=== PATIENT | male | born 1970 | race Two or more races ===

== ENCOUNTER 2019-03-06 22:20 | Inpatient (IN) | payer SELFPAY ==
[~2019-03-06] VITALS: Ht 182.9 cm; Wt 101.1 kg
[2019-03-06 23:21] LABS: Basophils # (auto) 0.1 uL; Basophils % (auto) 1.1 % (0.0-2.0); Eosinophils # (auto) 0.2 uL; Eosinophils % (auto) 1.3 % (0.0-7.0); Hematocrit 51.9 % (41.0-53.0); Hemoglobin 17.5 g/dL (13.5-17.5); Lymphocytes # (auto) 2.1 uL; Mean Corpuscular Hemoglobin 31.2 pg (28.0-32.0); Mean Corpuscular Hgb Conc. 33.7 g/dL (32.0-36.0); Mean Corpuscular Volume 92.6 fL (80.0-100.0); Monocytes # (auto) 1.1 uL; Monocytes % (auto) 8.6 % (0.0-12.0); Neutrophils # (auto) 8.8 uL; Nucleated Red Blood Cells % 0.1 %; Platelet Count (auto) 201 10^3/uL (140-450); Red Cell Distribution Width 13.3 % (11.8-14.3); White Blood Cell 12.2 10^3/uL (4.4-10.8)
[2019-03-06 23:26] LABS: Urine Bacteria FEW /hpf (None Seen); Urine Blood Negative /uL (Negative); Urine Hyaline Cast FEW /lpf (0 - 2); Urine Mucus FEW (None Seen); Urine WBC 1 /hpf (0 - 3)
[2019-03-06 23:37] LABS: Albumin 3.9 g/dL (3.4-5.0); BUN/Creatinine Ratio 14.4; Calcium 8.9 mg/dL (8.5-10.1); Potassium 3.9 mmol/L (3.5-5.1)
[2019-03-06 23:40] LABS: Bilirubin, Total 1.1 mg/dL (0.2-1.0)
[2019-03-07] MEDS ORDERED: ONDANSETRON HCL 4 MG/2 ML VIAL IV ONE (02:00)
[2019-03-07] MEDS ORDERED: MORPHINE SULFATE 4 MG/ML SYR/VIAL IV ONE ×2 (02:00→03:45)
[2019-03-07] MEDS ORDERED: SODIUM CHLORIDE 0.9% 1,000 ML IV ONE (02:00)
[2019-03-07] MEDS ORDERED: PIPERACILLIN-TAZOB 3.375GM 100 ML IV ONE (02:00)
[2019-03-07] MEDS ORDERED: ONDANSETRON HCL 4 MG/2 ML VIAL IV PRN ×3 (04:00→13:00)
[2019-03-07] MEDS ORDERED: LORazepam 2MG/ML-1ML VIAL IV PRN (04:00)
[2019-03-07] MEDS ORDERED: ACETAMINOPHEN 500 MG TAB PO PRN (04:00)
[2019-03-07] MEDS ORDERED: chlordiazePOXIDE HCL 25 MG CAP PO PRN (04:00)
[2019-03-07] MEDS ORDERED: MORPHINE SULF INJ 2 MG/ML SYRINGE 1ML IV PRN (04:00)
[2019-03-07] MEDS ORDERED: ENALAPRILAT 1.25 MG/ML-1ML VIAL IV PRN (04:45)
[2019-03-07 05:09] LABS: Basophils # (auto) 0.1 uL; Basophils % (auto) 0.4 % (0.0-2.0); Eosinophils # (auto) 0 uL; Hematocrit 51.6 % (41.0-53.0); Hemoglobin 17.4 g/dL (13.5-17.5); Lymphocytes # (auto) 0.9 uL; Lymphocytes % (auto) 5.7 % (10.0-50.0); Mean Corpuscular Hgb Conc. 33.7 g/dL (32.0-36.0); Monocytes # (auto) 0.9 uL; Monocytes % (auto) 5.7 % (0.0-12.0); Neutrophils # (auto) 13.4 uL; Neutrophils % (auto) 88.2 % (37.0-80.0); Platelet Count (auto) 184 10^3/uL (140-450); Red Blood Cells 5.61 10^6/uL (4.5-5.90); Red Cell Distribution Width 13.4 % (11.8-14.3); White Blood Cell 15.1 10^3/uL (4.4-10.8)
[2019-03-07 05:29] LABS: Calcium 8.4 mg/dL (8.5-10.1)
--- NOTE | 2019-03-07 05:38 | NUR ---
MS admit from ER ANDREA WEBB admitted to tele/MS after SBAR received. Patient oriented to Leatha Farley, primary RN, unit, room, bed, and unit policies regarding patient care and visiting hours. Patient weighed by bedscale and encouraged to call if they need something. All questions and concerns addressed, patient verbalized understanding. Note:
[2019-03-07] MEDS: metroNIDAZOLE 500MG/100ML 100 ML IV SCH ×3 (06:15→21:59)
[2019-03-07] MEDS: PANTOPRAZOLE 40 MG TAB PO SCH (06:29)
[2019-03-07] MEDS ORDERED: AMOX250C3 PO (06:54)
[2019-03-07] MEDS ORDERED: RANI150C11 PO (06:54)
[2019-03-07 06:56] VITALS: BP 180/92
--- NOTE | 2019-03-07 07:45 | NUR ---
Opening Shift Note Assumed care of patient, awake and alert. Orientated patient to RNClaudette. No S/S of distress/SOB . Patient reported pain of 8/10, nonradiating, and burning pain that began when admitted. Will medicated patient per protocol when available. Instructed on POC and to call for assist PRN, will continue to monitor for changes Q1hr and PRN.
[2019-03-07 08:00] VITALS: BP 156/93
--- NOTE | 2019-03-07 09:00 | NUR ---
Chlorhexidine Gluconate cloth provided Provided patient Chlorhexidine Gluconate cloth. Patient is alert and orientated times 4. Patient verbalized understanding and patient requested for to assist him.
[2019-03-07] MEDS: cefTRIAXone 1GM/50ML D5W 50 ML IV SCH (09:38)
--- NOTE | 2019-03-07 09:45 | NUR ---
Off Unit/Preop Patient taken down for cholecystectomy via bed. Patient alert and orientated times 4. Family accompanied patient to talk to surgeon. Consents signed and verified. Iv patent and asymptomatic no redness or edema noted. Report given to Maria E zendejas RN.
[2019-03-07 10:25] LABS: INR 1.04 (0.9-1.15)
[2019-03-07] MEDS ORDERED: MIDAZOLAM HCL 1MG/1ML-2 ML VIAL ONE (10:39)
[2019-03-07] MEDS ORDERED: ROCURONIUM 10MG/ML 10ML VIAL IV ONE (10:39)
[2019-03-07] MEDS ORDERED: LIDOCAINE 1% (LOCAL ANESTH.) PF 5ml SDV ONE (10:39)
[2019-03-07] MEDS ORDERED: SUCCINYLCHOLINE CHLORIDE 20 MG/ML 10ML VIAL IV ONE (10:59)
[2019-03-07] MEDS ORDERED: POVIDONE IODINE 10 % TOPICAL OINT 30GM TOP ONE (11:26)
[2019-03-07] MEDS ORDERED: PROPOFOL 10 MG/ML 20 ML IV ONE (11:27)
[2019-03-07] MEDS ORDERED: METOCLOPRAMIDE HCL 5MG/ml INJ 2ml VIAL ONE (11:37)
[2019-03-07] MEDS ORDERED: fentaNYL CITRATE 100 MCG/2 ML VL ONE (11:49)
[2019-03-07] MEDS ORDERED: PHENYLEPHRINE HCL 10 MG/ML VL ONE (11:54)
[2019-03-07] MEDS ORDERED: SODIUM CHLORIDE LOCK 10 ML ONE (11:56)
[2019-03-07] MEDS: FOLIC ACID 1 MG, MULTIPLE VITAMIN 10 ML, MAGNESIUM SULF SDV 50% 8 MEQ, THIAMINE INJ 100... INJ SCH ×5 (12:00)
[2019-03-07] MEDS ORDERED: NALOXONE HCL 0.4 MG/ML VIAL IV PRN (12:15)
[2019-03-07] MEDS ORDERED: ePHEDrine SULFATE 50 MG/ML AMP IV PRN (12:15)
[2019-03-07] MEDS ORDERED: HYDROmorphone HCL 2 MG/ML VL IV PRN ×2 (12:15)
[2019-03-07] MEDS ORDERED: NEOSTIGMINE 1 MG/ML INJ (10mg/10ML VIAL) ONE (12:29)
[2019-03-07] MEDS ORDERED: GLYCOPYRROLATE 0.2 MG/ML 1ML VIAL ONE (12:29)
[2019-03-07] MEDS ORDERED: D5W/SOD CHL 0.45%/KCL 20MEQ 1,000 ML IV SCH (13:00)
[2019-03-07] MEDS ORDERED: D5W/ SOD CHL 0.9%/KCL 20MEQ 1,000 ML IV SCH (13:00)
[2019-03-07] MEDS: D5W/SOD CHL 0.45%/KCL 20MEQ 1,000 ML IV SCH (13:55)
--- NOTE | 2019-03-07 13:55 | NUR ---
S/P OR assessment Patient back from OR. Vital signs taken, 140/75, p 75, o2 94%, rr 14, temp 99.0. surgical site assessed for redness, swelling, or bleeding, 3 small dressings noted, cdi, WALTER site noted to right lower quadrant, draining serosanguineous fluid. Patient instructed on need to inform staff immediately for any pain, swelling, bleeding or pulling or popping sensations at surgical site. Patient verbalized understanding, call light within reach, family notified by construction code administrator
[2019-03-07] MEDS: HYDROmorphone HCL 2 MG/ML VL IV PRN ×2 (16:36→23:00)
[2019-03-07 17:00] VITALS: BP 133/72
--- NOTE | 2019-03-07 19:35 | NUR ---
RECEIVED PATIENT FROM DAY SHIFT RN. PATIENT RESTING IN BED. NO S/S OF DISTRESS NOTED. C/O PAIN @ 2/10 AFTER PAIN MEDICATION EARLIER. PATIENT UNDERSTOOD THAT HE COULD CALL FOR PAIN MEDICATION IF HE COULD NOT TOLERATE THE PAIN. DRESSING ON INCISION SITE D/I. WALTER DRAIN NOTED. EMPTIED 75 ML BLOOD FLUID FROM WALTER DRAIN. POC INSTRUCTED AND ENCOURAGED PATIENT TO CALL FOR [employer] SALES IF NEEDED. BED IN LOWEST POSITION WITH SIDE RAILS UP X 2. CALL ZUÑIGA WITHIN REACH. ALARM ON. CONTINUE TO MONITOR FOR CHANGES Q1H AND PRN.
[2019-03-07 21:40] VITALS: BP 136/81
--- NOTE | 2019-03-07 23:05 | NUR ---
MEDICATED PATIENT FOR PAIN @ 04/01. EMPTIED WALTER DRAIN 75 ML. CONTINUE TO MONITOR.
--- NOTE | 2019-03-08 00:10 | NUR ---
PATIENT SLEEPING. NO S/S OF DISTRESS AND PAIN NOTED. CONTINUE TO MONITOR.
[2019-03-08] MEDS: D5W/SOD CHL 0.45%/KCL 20MEQ 1,000 ML IV SCH ×3 (00:21→22:00)
--- NOTE | 2019-03-08 02:37 | NUR ---
PATIENT SLEEPING. NO S/S OF DISTRESS AND PAIN NOTED. CONTINUE TO MONITOR.
--- NOTE | 2019-03-08 04:27 | NUR ---
PATIENT WALKED TO BATHROOM WITH STEADY GAIT. NO S/S OF DISTRESS NOTED. EMPTIED WALTER DRAIN 100ML. CONTINUE TO MONITOR.
[2019-03-08 05:00] VITALS: BP 136/83
[2019-03-08] MEDS: metroNIDAZOLE 500MG/100ML 100 ML IV SCH ×3 (06:35→22:20)
[2019-03-08] MEDS: PANTOPRAZOLE 40 MG TAB PO SCH (06:35)
--- NOTE | 2019-03-08 07:40 | NUR ---
WALTER DRAIN 40 ML DRAINED OF SANGUINEOUS FLUID.
--- NOTE | 2019-03-08 07:40 | NUR ---
OPENING NOTE ASSUMED CARE OF PT. ALERT AND ORIENTED. NO SIGNS OF SOB/DISTRESS NOTED. BED SET TO LOWEST POSITION/LOCKED. BEDSIDE RAILS UP X2. CALL LIGHT WITHIN REACH. INSTRUCTED PT TO CALL FOR ASSISTANCE. DISCUSSED POC. WILL CONTINUE TO MONITOR Q1HR AND PRN.
[2019-03-08 08:00] VITALS: BP 134/80
[2019-03-08] MEDS: cefTRIAXone 1GM/50ML D5W 50 ML IV SCH (09:44)
[2019-03-08 12:00] VITALS: BP 137/77
--- NOTE | 2019-03-08 14:00 | NUR ---
WALTER DRAIN 30 ML DRAINED OF SANGUINEOUS FLUID.
[2019-03-08] MEDS: FOLIC ACID 1 MG, MULTIPLE VITAMIN 10 ML, MAGNESIUM SULF SDV 50% 8 MEQ, THIAMINE INJ 100... INJ SCH ×5 (14:04)
[2019-03-08 16:58] VITALS: BP 130/71
--- NOTE | 2019-03-08 19:20 | NUR ---
Assumed care of patient, who is A&O x4. Currently on room air with no s/s or SOB or distress. Reports 5/10 pain to surgical site. Pain management options discussed with patient. WALTER drain is in place at right lower quadrant. Draining sanguinous fluid. 25ml emptied at this time. Patient is able to ambulate independently with out the use of assistive devices. Encouraged to call for assistance when needed. Bed is in low locked position with side rails up x2. Call martinez is within reach. Will continue to monitor PRN.
[2019-03-08 20:00] VITALS: BP 147/92
[2019-03-08] MEDS: HYDROmorphone HCL 2 MG/ML VL IV PRN (22:20)
[2019-03-08 22:22] VITALS: BP 147/92
--- NOTE | 2019-03-09 04:04 | NUR ---
WALTER Drain Emptied 25ml of sanguinous output from WALTER drain. Patient tolerates well.
[2019-03-09 05:18] VITALS: BP 132/79
[2019-03-09] MEDS: PANTOPRAZOLE 40 MG TAB PO SCH (06:10)
[2019-03-09] MEDS: metroNIDAZOLE 500MG/100ML 100 ML IV SCH ×3 (06:10→22:24)
[2019-03-09 08:00] VITALS: BP 138/88
[2019-03-09] MEDS: D5W/SOD CHL 0.45%/KCL 20MEQ 1,000 ML IV SCH ×2 (09:24→15:00)
[2019-03-09] MEDS: cefTRIAXone 1GM/50ML D5W 50 ML IV SCH (09:25)
--- NOTE | 2019-03-09 11:05 | NUR ---
WALTER DRAIN 40 ML OF SANGUINEOUS FLUID DRAINED .
[2019-03-09 12:00] VITALS: BP 128/72
[2019-03-09] MEDS: FOLIC ACID 1 MG, MULTIPLE VITAMIN 10 ML, MAGNESIUM SULF SDV 50% 8 MEQ, THIAMINE INJ 100... INJ SCH ×5 (13:47)
--- NOTE | 2019-03-09 16:45 | NUR ---
Estimated needs based on AJBW 86.7 kg-wound healing 8093-1295 kcal (25-27 kcal/kg) 87-104 g protein (1.0-1.2 g/kg) Addendum: 03/09/19 at [address] Amended: Links added.
[2019-03-09 16:57] VITALS: BP 139/90
--- NOTE | 2019-03-09 18:45 | NUR ---
WALTER DRAIN 30 ML OF SANGUINEOUS FLUID DRAINED .
--- NOTE | 2019-03-09 19:45 | NUR ---
Opening shift note Assumed care of patient who is A&O x4. Family is at the bedside. No s/s of SOB or distress. Patient reports 8/10 pain in left lower quadrant related to surgical incision. Patient requests pain medication be administered with scheduled medications at 2200. WALTER drain positioning reinforced. Draining sanguinous fluid. POC discussed with patient and family, who verbalize understanding. Bed is in low locked position with side rails up x2. Call martinez is within reach. Will continue to monitor for changes PRN.
[2019-03-09] MEDS: HYDROmorphone HCL 2 MG/ML VL IV PRN (22:24)
[2019-03-09 23:38] VITALS: BP 123/76
--- NOTE | 2019-03-10 | NUR ---
WALTER DRAIN 20ml sanguinous fluid emptied from drain. Patient tolerated well.
[2019-03-10] MEDS: D5W/SOD CHL 0.45%/KCL 20MEQ 1,000 ML IV SCH ×3 (01:00→21:01)
[2019-03-10 05:00] VITALS: BP 125/62
[2019-03-10] MEDS: PANTOPRAZOLE 40 MG TAB PO SCH (05:58)
[2019-03-10] MEDS: metroNIDAZOLE 500MG/100ML 100 ML IV SCH ×3 (05:58→22:24)
--- NOTE | 2019-03-10 05:58 | NUR ---
WALTER DRAIN 20ml sanguinous drainage emptied from drain. Patient tolerated well.
[2019-03-10 07:46] LABS: Basophils # (auto) 0.1 uL; Basophils % (auto) 0.8 % (0.0-2.0); Eosinophils # (auto) 0.5 uL; Eosinophils % (auto) 6.3 % (0.0-7.0); Hematocrit 45.2 % (41.0-53.0); Hemoglobin 15.2 g/dL (13.5-17.5); Lymphocytes # (auto) 1.7 uL; Lymphocytes % (auto) 19.8 % (10.0-50.0); Mean Corpuscular Hemoglobin 31.3 pg (28.0-32.0); Mean Corpuscular Hgb Conc. 33.6 g/dL (32.0-36.0); Mean Corpuscular Volume 93.1 fL (80.0-100.0); Monocytes # (auto) 0.9 uL; Monocytes % (auto) 10.4 % (0.0-12.0); Neutrophils # (auto) 5.3 uL; Neutrophils % (auto) 62.7 % (37.0-80.0); Platelet Count (auto) 205 10^3/uL (140-450); Red Blood Cells 4.86 10^6/uL (4.5-5.90); Red Cell Distribution Width 12.8 % (11.8-14.3); White Blood Cell 8.4 10^3/uL (4.4-10.8)
[2019-03-10 08:02] LABS: Albumin 2.8 g/dL (3.4-5.0); Calcium 8.4 mg/dL (8.5-10.1); Potassium 3.9 mmol/L (3.5-5.1)
[2019-03-10 08:05] LABS: BUN/Creatinine Ratio 11.6; Bilirubin, Total 0.6 mg/dL (0.2-1.0); Total Protein 6.7 g/dL (6.4-8.2)
[2019-03-10 09:00] VITALS: BP 128/89
[2019-03-10] MEDS: cefTRIAXone 1GM/50ML D5W 50 ML IV SCH (10:08)
[2019-03-10] MEDS: FOLIC ACID 1 MG, MULTIPLE VITAMIN 10 ML, MAGNESIUM SULF SDV 50% 8 MEQ, THIAMINE INJ 100... INJ SCH ×5 (12:49)
[2019-03-10 13:00] VITALS: BP 127/74
--- NOTE | 2019-03-10 14:19 | NUR ---
Received referral to find out if pt qualifies for medi-madi. Pt is over income for assistance.
[2019-03-10 17:00] VITALS: BP 117/71
--- NOTE | 2019-03-10 18:30 | NUR ---
WALTER DRAIN 30 ML OF SANGUINEOUS FLUID DRAINED .
--- NOTE | 2019-03-10 19:05 | NUR ---
OPENING NOTE- NOC SHIFT PATIENT IS ALERT AND ORIENTED X4. PATIENT IS MACANESE SPEAKING ONLY. PATIENT SPEAKS IN COMPLETE SENTENCES AND MAKES APPROPRIATE EYE CONTACT. PATIENT IS POST CHOLECYSTECTOMY ON 03/07/2019. PATIENT HAS A WALTER DRAIN TO HIS RIGHT LOWER QUADRANT AND TWO MID ABDOMEN INCISIONS APPROX 7 INCHES APART; STAINED WITH WHAT LOOKS LIKE IODINE STAIN BUT NO SIGNS OF ACTIVE BLEEDING TO BOTH SITES. WALTER DRAIN HAS APPROX 5 MLS OF SANGUINEOUS FLUID AND IS DRAINING PROPERLY. PATIENT IS NOT WEARING AN ABDOMINAL BINDER BECAUSE HE STATES THAT IT IS TOO TIGHT FOR HIM; WILL PROVIDE HIM WITH A LARGER SIZE. NO S/SX OF DISTRESS OR SOB. PATIENT STATES THAT PAIN IS TOLERABLE AT THIS TIME AND THAT HE WILL ASK FOR PAIN MEDICATION WHEN HE FEELS THAT HE NEEDS IT. EDUCATED PATIENT OF IMPORTANCE OF AMBULATION AND ENCOURAGED HIM TO GET OUT OF BED AND WALK AROUND THAT FLOOR. EDUCATED PATIENT REGARDING IMPORTANCE OF DEEP BREATHING. WILL PROVIDE HIM WITH INCENTIVE SPIROMETER. DISCUSSED POC WITH PATIENT AND INSTRUCTED PATIENT TO CALL PRN; PATIENT VERBALIZED UNDERSTANDING. BED SIDE TABLE WITHIN REACH, CALL LIGHT WITHIN REACH. BED IS LOCKED AT LOWEST POSITION, BED RAILS UP X2 AND HEAD OF BED IS UP >30 DEGREES FOR SAFETY PRECAUTIONS. WILL CONTINUE TO MONITOR Q1H AND PRN.
--- NOTE | 2019-03-10 19:30 | NUR ---
PROVIDED PATIENT WITH ABDOMINAL BINDER APPROPRIATE FOR HIS SIZE AND ASSISTED PATIENT ADJUSTING IT. PATIENT TOLERATES ACTIVITY WELL.
[2019-03-10] MEDS: HYDROmorphone HCL 2 MG/ML VL IV PRN (22:37)
[2019-03-10 23:01] VITALS: BP 136/84
[2019-03-11] MEDS: D5W/SOD CHL 0.45%/KCL 20MEQ 1,000 ML IV SCH ×2 (07:00→17:00)
[2019-03-11 09:00] VITALS: BP 111/74
[2019-03-11] MEDS: PANTOPRAZOLE 40 MG TAB PO SCH (09:01)
[2019-03-11] MEDS: cefTRIAXone 1GM/50ML D5W 50 ML IV SCH (09:01)
[2019-03-11] MEDS: FOLIC ACID 1 MG, MULTIPLE VITAMIN 10 ML, MAGNESIUM SULF SDV 50% 8 MEQ, THIAMINE INJ 100... INJ SCH ×5 (12:04)
[2019-03-11 13:00] VITALS: BP 122/75
[2019-03-11] MEDS: metroNIDAZOLE 500MG/100ML 100 ML IV SCH ×2 (14:00→21:50)
[2019-03-11 17:00] VITALS: BP 131/75
[2019-03-11] MEDS: HYDROmorphone HCL 2 MG/ML VL IV PRN (17:34)
--- NOTE | 2019-03-11 20:48 | NUR ---
PATIENT WALKING AROUND NURSING STATION WITH FAMILY. MONITORING CLOSELY. STEADY GAIT IS NOTED.
[2019-03-11 22:00] VITALS: BP 130/87
[2019-03-12] MEDS: D5W/SOD CHL 0.45%/KCL 20MEQ 1,000 ML IV SCH ×2 (02:54→13:00)
--- NOTE | 2019-03-12 04:20 | NUR ---
NEW IV IV access obtained, via clean sterile technique by inserting 22 gauge catheter at RIGHT HAND after 4 attempt(s) BY THREE RNs. IV secured properly. No trauma to site. Patient tolerated well. NOTE: IV TO LEFT HAND REMOVED. IV WAS LEAKING. IV removal IV DC'd with clean sterile technique, catheter fully intact. Pressure dressing applied to site. Patient tolerated well. NOTE:
[2019-03-12 05:00] VITALS: BP 116/75
[2019-03-12] MEDS: PANTOPRAZOLE 40 MG TAB PO SCH (06:19)
[2019-03-12] MEDS: metroNIDAZOLE 500MG/100ML 100 ML IV SCH (06:20)
--- NOTE | 2019-03-12 06:55 | NUR ---
WALTER DRAIN 75MLS SEROSANGUINEOUS FLUID FOR MARKET ASSET PROTECTION MANAGER.
--- NOTE | 2019-03-12 06:58 | NUR ---
CLOSING NOTE- NOC SHIFT PATIENT COMFORTABLE IN BED, NO S/SX OF DISTRESS, SOB OR PAIN. WILL ENDORSE CARE TO DAY SHIFT RN.
[2019-03-12 09:00] VITALS: BP 123/74
[2019-03-12] MEDS: cefTRIAXone 1GM/50ML D5W 50 ML IV SCH (09:00)
[2019-03-12] MEDS: FOLIC ACID 1 MG, MULTIPLE VITAMIN 10 ML, MAGNESIUM SULF SDV 50% 8 MEQ, THIAMINE INJ 100... INJ SCH ×5 (12:00)
[2019-03-12 12:16] VITALS: BP 122/68
--- NOTE | 2019-03-12 16:27 | NUR ---
DISCHARGE INSTRUCTIONS GIVEN TO PT AND FAMILY. TEACHING DONE ON THE WALTER DRAIN. PT AND DAUGHTER VERBALIZED UNDERSTANDING. ALL APPROPRIATE PAPERWORK SIGNED. PT DISCHARGED HOME WITH FAMILY AT APPROX. 1600.
== END 2019-03-12 16:00 | disposition home or self-care (01) | DRG 419 ==
LOC: ER 22:24 → OVERFLOW 22:25 → CENTRAL 03-07 05:30
PROVIDERS: ADMIT Nurse Practitioner Family; ATTEND Internal Medicine
PROC: 0FT44ZZ Resection of Gallbladder, Percutaneous Endoscopic Approach (ICD-10-PCS; principal; 2019-03-07 11:32)
DX: K80.00 Calculus of gallbladder with acute cholecystitis without obstruction (principal); E11.9 Type 2 diabetes mellitus without complications; E66.01 Morbid (severe) obesity due to excess calories; F10.10 Alcohol abuse, uncomplicated; F17.210 Nicotine dependence, cigarettes, uncomplicated; I10 Essential (primary) hypertension; K57.30 Diverticulosis of large intestine without perforation or abscess without bleeding; K82.8 Other specified diseases of gallbladder; G47.33 Obstructive sleep apnea (adult) (pediatric); K21.9 Gastro-esophageal reflux disease without esophagitis; Z79.899 Other long term (current) drug therapy; Z68.30 Body mass index [BMI] 30.0-30.9, adult
CPT/HCPCS: 36415; 74176; 76705; 78226; 80048; 80053; 80320; 81001; 82150; 82247; 83036; 83605; 83690; 85025; 85610; 85730; 86850; 86900; 86901; 87040; 96365; 96375; 96376; G0378; J0330; J0696; J2250; J2405; J2543; J2704; J3490